=== PATIENT | female | born 1950 | race Caucasian/White ===

== ENCOUNTER 2016-10-14 10:31 | Emergency (ER) | payer MEDICARE, OTHER ==
--- NOTE | ~2016-10-14 | CR72 ---
[facility]. [facility] A Service of [facility] & [facility] RADIOLOGY TEXT RESULTS PATIENT: NIKHIL MITCHELL LOCATION: SED : 50 UNIT #: [id number] AGE: [address]: Juan Carlos Roy MD SEX: F ORDER DR: [id number] [place] [id number] E MR#: [id number] Acc #: [id number] NAME: NIKHIL MITCHELL : 1950 SEX: F STUDY DATE/TIME: 10/14/2016 11:01 UNIT: SED ROOM: STUDY DESCRIPTION: CR Chest Single View Portable Attending Physician: Juan Carlos Roy M.D. Ordering Physician: Juan Carlos Roy M.D. Primary Care Physician: Kenneth Adams D.O. MEDICAL IMAGING REPORT This report is preliminary unless electronic signature is present. EXAM Portable chest, 1 view, 10/14/2016. HISTORY Chest pain under breast and on back. Symptoms for 1-2 weeks. FINDINGS There is old granulomatous disease, but no consolidation, effusion, or pneumothorax. Heart size likely within normal limits, given portable AP technique. IMPRESSION Negative portable chest. Dictated by... Linden Peña M.D. THIS IS AN ELECTRONICALLY VERIFIED REPORT Linden Peña M.D. at 10/16/2016 1:49 PM TEV/johnathan TD: 10/15/2016 09:32 JOB #: [id number] MEDICAL IMAGING REPORT Page 1 of 1
--- NOTE | ~2016-10-14 | EKG ---
PATIENT: NIKHIL MITCHELL UNIT #: [id number] Ventricular Rate: 92 BPM Atrial Rate: 92 BPM P-R Interval: 120 ms QRS Duration: 72 ms Q-T Interval: 360 ms QTC Calculation(Bezet): 445 ms P Wildrose: 38 degrees Calculated R Wildrose: -5 degrees Calculated T Wildrose: 33 degrees Diagnosis Line: Normal sinus rhythm Diagnosis Line: Cannot rule out Inferior infarct , age Diagnosis Line: undetermined Diagnosis Line: Abnormal ECG Diagnosis Line: When compared with ECG of 19-AUG-2014 12:50, Diagnosis Line: No significant change was found Diagnosis Line: Confirmed by LUIS ALFREDO NEGRETE MD ([id number]) on 10/19/2016 Diagnosis Line: 9:38:02 AM INTERPRETING MD: PENELOPE RIOS
[~2016-10-14 10:31] MED LIST: ATARAX PO; ATIVAN PO; CELEXA20 MG PO; COLACE PO; DULCOLAX5 MG PO; MIRTAZAPINE7.5 MG PO; SENNA PO; STOOL SOFTENER1 EAC1 PO
[2016-10-14] MEDS ORDERED: VISTARIL PO (10:37)
[2016-10-14] MEDS ORDERED: BUSPAR PO (10:37)
[2016-10-14] MEDS ORDERED: VITAMIN E (10:38)
[2016-10-14 11:02] LABS: BASOPHIL% 0.9 % (0-2.5); DIFF IND NO; EOSINOPHIL# 0.2 X10e3 (0-0.7); EOSINOPHIL% 3.7 % (0.0-7.0); HEMOGLOBIN 13.2 gm/dL (12.0-16.0); LYMPHOCYTE# 1.1 X10e3 (1.0-3.5); LYMPHOCYTE% 23.9 % (17.0-45.0); MEAN CELL VOLUME 100.8 FL (83-96); MEAN CORPUSCULAR HEMOGLOBIN 33.1 PG (28-34); MEAN CORPUSCULAR HGB CONC 32.9 g/dL (30-36); MEAN PLATELET VOLUME 7.9 FL (6.5-11.5); MONOCYTE# 0.3 X10e3 (0-1.0); MONOCYTE% 6.7 % (3.0-12.0); NEUTROPHIL# 2.9 X10e3 (1.5-7.1); NEUTROPHIL% 64.8 % (40-75); PLATELET COUNT 230 X10e3 (140-420); RED BLOOD COUNT 3.97 X10e (3.90-5.30); RED CELL DISTRIBUTION WIDTH 15.3 % (11.0-15.5); WHITE BLOOD COUNT 4.5 X10e3 (4.0-10.5)
[2016-10-14 11:13] LABS: POC - CKMB <1.0 ng/mL (0.0-7.9); POC - MYOGLOBIN 38.2 ng/mL (0.0-169.0); POC - TROPONIN <0.05 ng/mL (<=0.05)
[2016-10-14 11:19] LABS: ALBUMIN SERUM 3.7 g/dL (3.5-5.0); ALKALINE PHOSPHATASE 66 U/L (32-92); ALT (SGPT) 14 U/L (10-40); AST (SGOT) 28 U/L (10-42); BILIRUBIN, DIRECT 0.2 mg/dL (0.0-0.2); BILIRUBIN,INDIRECT 0.6 mg/dL (0.0-0.9); BILIRUBIN,TOTAL 0.8 mg/dL (0.2-2.0); BLOOD UREA NITROGEN 10 mg/dL (9-23); CALCIUM SERUM 8.6 mg/dL (8.4-10.2); CARBON DIOXIDE 24 mmol/L (22-31); CHLORIDE 93 mmol/L (100-111); CREATININE SERUM 0.5 mg/dL (0.6-1.4); GLOM FILT RATE Estimated ABOVE60 mL/min (>60); GLUCOSE FASTING 165 mg/dL (70-110); POTASSIUM 3.4 mmol/L (3.5-5.1); PROTEIN TOTAL SERUM 6.5 g/dL (6.0-8.3); SODIUM 127 mmol/L (135-145)
[2016-10-14 12:46] LABS: POC - CKMB <1.0 ng/mL (0.0-7.9)
[2016-10-14 12:47] LABS: POC - MYOGLOBIN 33.6 ng/mL (0.0-169.0); POC - TROPONIN <0.05 ng/mL (<=0.05)
== END 2016-10-14 13:13 | disposition home or self-care (01) ==
LOC: SED 10:31
PROVIDERS: Emergency Medicine
DX: R07.89 Other chest pain (principal); F41.9 Anxiety disorder, unspecified; F17.200 Nicotine dependence, unspecified, uncomplicated; I10 Essential (primary) hypertension; Z90.710 Acquired absence of both cervix and uterus; Z88.7 Allergy status to serum and vaccine
CPT/HCPCS: 36415; 71010; 80048; 80076; 82553; 83690; 83874; 84484; 85025; 93005; 96361; 96374; 96375; 99284; J1170; J1885